=== PATIENT | female | born 1965 | race Caucasian/White ===

== ENCOUNTER 2018-01-19 17:08 | Emergency (ER) | payer MEDICAID ==
[~2018-01-19] VITALS: Ht 157.5 cm; Wt 60.0 kg
[2018-01-19] MEDS ORDERED: CYCL-1 PO (18:02)
[2018-01-19 18:29] VITALS: BP 130/79
== END 2018-01-19 18:51 | disposition home or self-care (01) ==
LOC: ER 17:09
DX: M54.81 Occipital neuralgia (principal); G89.29 Other chronic pain; Z88.8 Allergy status to other drugs, medicaments and biological substances; Z79.899 Other long term (current) drug therapy
CPT/HCPCS: 99283

== ENCOUNTER 2018-09-17 10:59 | Emergency (ER) | payer MEDICAID ==
[~2018-09-17] VITALS: Ht 157.5 cm; Wt 57.0 kg
[~2018-09-17 10:59] MED LIST: CYCL-1 PO
[2018-09-17] MEDS ORDERED: orphenadrine citrate 60mg/2ml inj. IM ONE (13:35)
[2018-09-17] MEDS ORDERED: ketorolac tromethamine 15mg/ml inj. IM ONE (13:35)
[2018-09-17] MEDS ORDERED: IBUP-1985 PO (13:37)
[2018-09-17 14:14] VITALS: BP 128/56
== END 2018-09-17 14:17 | disposition home or self-care (01) ==
LOC: ER 11:00
DX: M25.511 Pain in right shoulder (principal); G89.29 Other chronic pain; F32.9 Major depressive disorder, single episode, unspecified; Z88.1 Allergy status to other antibiotic agents; Z79.899 Other long term (current) drug therapy
CPT/HCPCS: 96372; 99283; J1885; J2360

== ENCOUNTER 2019-10-12 15:21 | Emergency (ER) | payer MEDICAID ==
[~2019-10-12] VITALS: Ht 157.5 cm; Wt 56.2 kg
[~2019-10-12 15:21] MED LIST changes: +IBUP-1985 PO; +LIDOcaine 1% W/epiNEPHrine 1:100,000 20ml vial ONE
[2019-10-12 15:42] VITALS: BP 128/87
[2019-10-12] MEDS ORDERED: TETanus/Pertussis (Acell)/Diphther VAC/PF (Tdap-Adult) 0.5ml syringe IMVAC ONE (16:00)
[2019-10-12] MEDS ORDERED: AMOX-422 PO (16:50)
== END 2019-10-12 16:57 | disposition home or self-care (01) ==
LOC: ER 15:21
DX: S61.512A Laceration without foreign body of left wrist, initial encounter (principal); G89.29 Other chronic pain; Z88.1 Allergy status to other antibiotic agents; W54.0XXA Bitten by dog, initial encounter; Y93.89 Activity, other specified; Y92.89 Other specified places as the place of occurrence of the external cause; Y99.9 Unspecified external cause status
CPT/HCPCS: 12001; 73100; 90471; 90715; 99283

== ENCOUNTER 2019-10-29 09:24 | Emergency (ER) | payer MEDICAID ==
[~2019-10-29] VITALS: Ht 157.5 cm; Wt 53.2 kg
[~2019-10-29 09:24] MED LIST changes: -LIDOcaine 1% W/epiNEPHrine 1:100,000 20ml vial ONE
[2019-10-29 09:28] VITALS: BP 147/101
== END 2019-10-29 10:50 | disposition home or self-care (01) ==
LOC: ER 09:25
DX: S51.811D Laceration without foreign body of right forearm, subsequent encounter (principal); G89.29 Other chronic pain; F32.9 Major depressive disorder, single episode, unspecified; Z88.1 Allergy status to other antibiotic agents; Z79.899 Other long term (current) drug therapy; W54.0XXD Bitten by dog, subsequent encounter
CPT/HCPCS: 99281